=== PATIENT | male | born 1985 | race Two or more races ===

== ENCOUNTER 2019-06-22 18:30 | Emergency (ER) | payer OTHER ==
[~2019-06-22] VITALS: Ht 167.6 cm; Wt 117.9 kg
[~2019-06-22 18:30] MED LIST: ANTIVERT25 M1 PO
== END 2019-06-22 21:28 | disposition home or self-care (01) ==
LOC: ER 18:30
DX: H72.92 Unspecified perforation of tympanic membrane, left ear (principal); T70.29XA Other effects of high altitude, initial encounter; X58.XXXA Exposure to other specified factors, initial encounter; R51 Headache

== ENCOUNTER 2020-04-13 11:53 | Inpatient (IN) | payer OTHER ==
[~2020-04-13] VITALS: Ht 167.6 cm; Wt 117.9 kg
== END 2020-04-16 12:53 | disposition home or self-care (01) | DRG 392 ==
LOC: ER 11:53 → SURG 17:54
PROVIDERS: ADMIT Surgery; ATTEND Surgery
PROC: BW21ZZZ Computerized Tomography (CT Scan) of Abdomen and Pelvis (ICD-10-PCS; principal; 2020-04-13)
DX: K59.00 Constipation, unspecified (principal)

== ENCOUNTER 2020-07-30 15:00 | Inpatient (IN) | payer OTHER ==
[~2020-07-30] VITALS: Ht 167.6 cm; Wt 120.2 kg
== END 2020-07-31 14:40 | disposition home or self-care (01) | DRG 343 ==
LOC: ER 15:00 → SURG 21:38 → SEC-K 21:38 → SURG 23:30
PROVIDERS: ADMIT Surgery; ATTEND Surgery
PROC: 0DTJ4ZZ Resection of Appendix, Percutaneous Endoscopic Approach (ICD-10-PCS; principal; 2020-07-30)
PROC: BW21ZZZ Computerized Tomography (CT Scan) of Abdomen and Pelvis (ICD-10-PCS; 2020-07-30)
DX: K35.890 Other acute appendicitis without perforation or gangrene (principal)

== ENCOUNTER 2022-01-17 09:00 | Emergency (ER) | payer OTHER ==
[~2022-01-17] VITALS: Ht 167.6 cm; Wt 113.4 kg
== END 2022-01-17 10:43 | disposition home or self-care (01) ==
LOC: ER 09:00
DX: M54.50 Low back pain, unspecified (principal)

== ENCOUNTER 2023-05-08 16:06 | Emergency (ER) | payer OTHER ==
[~2023-05-08] VITALS: Ht 167.6 cm; Wt 113.4 kg
== END 2023-05-08 20:00 | disposition home or self-care (01) ==
LOC: ER 16:06
DX: K52.9 Noninfective gastroenteritis and colitis, unspecified (principal); R53.81 Other malaise; Z20.822 Contact with and (suspected) exposure to COVID-19

== ENCOUNTER 2024-11-24 15:17 | Emergency (ER) | payer OTHER ==
[~2024-11-24] VITALS: Ht 167.6 cm; Wt 113.4 kg
[2024-11-24] MEDS ORDERED: LEVOTHYROXINE25 MCG PO (15:45)
[2024-11-24] MEDS ORDERED: KETOROLAC TROMETHAMINE 30 MG VIAL IM ONE (17:30)
[2024-11-24] MEDS ORDERED: KETOROLAC TROMETHAMINE 30 MG VIAL ONE (17:45)
== END 2024-11-24 19:01 | disposition home or self-care (01) ==
LOC: ER 15:20
DX: M79.662 Pain in left lower leg (principal); W18.39XA Other fall on same level, initial encounter; Y93.02 Activity, running; Y92.413 State road as the place of occurrence of the external cause